=== PATIENT | male | born 1995 | race Caucasian/White ===

== ENCOUNTER 2016-05-20 10:04 | Emergency (ER) | payer OTHER ==
[~2016-05-20] VITALS: Ht 177.8 cm; Wt 97.0 kg
[2016-05-20 10:13] VITALS: Ht 177.8 cm; Wt 97.0 kg
[2016-05-20] MEDS ORDERED: SODIUM CHLORIDE 0.9% 1000ML 1,000 ML IV STA (10:38)
[2016-05-20] MEDS ORDERED: ACETAMINOPHEN 500 MG TAB PO STA (10:38)
--- NOTE | 2016-05-20 11:03 | DIAGNOSTIC IMAGING REPORT ---
CHEST ONE VIEW PORTABLE CLINICAL HISTORY: fever dyspnea COMPARISON STUDY: No previous studies for comparison. FINDINGS: Minimal right suprahilar infiltrate. Lungs otherwise appear clear. No evidence for cardiac enlargement. IMPRESSION: Minimal right suprahilar infiltrate Electronically signed by: Eddie Thrasher M.D. 05/20/2016 11:01 AM Dictated Date/Time: 05/20/2016 11:01 AM
[2016-05-20] MEDS ORDERED: CEFTRIAXONE SOD INJ 1 GM ADDVIAL IV STA (11:33)
[2016-05-20 11:41] LABS: BASO % 1.1 %; BASO ABS # 0.05 K/uL (0-0.2); COMPLETE YES; EOS % 0.2 %; HEMATOCRIT 45.1 % (42-52); IG% 0.2 %; LYMPH % 36.4 %; LYMPH ABS # 1.63 K/uL (1.2-3.4); MEAN CELL VOLUME 78.4 fL (80-100); MEAN CORPUSCULAR HEMOGLOBIN 26.1 pg (25-34); MEAN CORPUSCULAR HGB CONC 33.3 g/dl (32-36); MEAN PLATELET VOLUME 10.1 fL (7.4-10.4); MONO % 14.5 %; NEUT % 47.6 %; PLATELET COUNT 154 K/uL (130-400); RED BLOOD COUNT 5.75 M/uL (4.7-6.1); WHITE BLOOD COUNT 4.48 K/uL (4.8-10.8)
[2016-05-20 11:48] LABS: INR 1.1 (0.9-1.1); PROTHROMBIN TIME (PATIENT) 11.6 SECONDS (9.0-12.0)
[2016-05-20 12:02] LABS: ALT/SGPT 44 U/L (12-78); AST/SGOT 39 U/L (15-37); BLOOD UREA NITROGEN 17 mg/dl (7-18); BUN/CREATININE RATIO 18.8 (10-20); CALCIUM 8.6 mg/dl (8.5-10.1); CARBON DIOXIDE 25 mmol/L (21-32); CHLORIDE 106 mmol/L (98-107); CREATININE 0.92 mg/dl (0.60-1.40); GLUCOSE 93 mg/dl (70-99); POTASSIUM 3.7 mmol/L (3.5-5.1); SODIUM 141 mmol/L (136-145)
[2016-05-20 12:08] LABS: ALKALINE PHOSPHATASE 84 U/L (45-117); MAGNESIUM 2.1 mg/dl (1.8-2.4)
--- NOTE | 2016-05-20 12:40 | DIAGNOSTIC IMAGING REPORT ---
LUMBAR SPINE MRI HISTORY: Pain. Fever. lower back pain w/ fever TECHNIQUE: Multiplanar multisequence MRI of the lumbar spine was performed without the use of contrast. COMPARISON: None. FINDINGS: For the purpose of the report the L5-S1 disc space will be located on axial image 23 of 25. Normal signal characteristics of the vertebral bodies as well as intervertebral disc. Normal signal characteristics the lower aspect of the thoracic cord as well as nerve roots. L1-L2: No significant central canal or neural foraminal narrowing. L2-L3: No significant central canal or neural foraminal narrowing. L3-L4: No significant central canal or neural foraminal narrowing. L4-L5: No significant central canal or neural foraminal narrowing. L5-S1: No significant central canal or neural foraminal narrowing. IMPRESSION: Normal MRI lumbar spine Electronically signed by: Eddie Thrasher M.D. 05/20/2016 12:39 PM Dictated Date/Time: 05/20/2016 12:37 PM
[2016-05-20 12:57] VITALS: TEMP 37.4
[2016-05-20] MEDS ORDERED: CEFTRIAXONE SOD INJ 2000 MG in DEXTROSE 5% 50ML IV SCH (13:00)
[2016-05-20 13:08] LABS: MANUAL MICROSCOPIC REQUIRED? NO; REVIEW REQ? YES; URINE APPEARANCE CLEAR (CLEAR); URINE BILIRUBIN NEG (NEG); URINE COLOR COLORLESS; URINE NITRITE NEG (NEG); URINE SPECIFIC GRAVITY <= 1.005 (1.000-1.030); UROBILINOGEN NEG (NEG)
[2016-05-20 13:09] LABS: URINE EPITHELIAL CELL AUTO 0-5 /lpf (0-5)
[2016-05-20 13:10] LABS: ZZUR CULT IF INDIC CLEAN CATCH NO
[2016-05-20] MEDS ORDERED: LORAZEPAM 0.5 MG TAB PO STA (14:00)
[2016-05-20 15:31] LABS: CSF APPEARANCE CLEAR; CSF COLOR COLORLESS; CSF XANTHOCHROMIC NO XANTHOCHROMIA
--- NOTE | 2016-05-20 15:36 | DIAGNOSTIC IMAGING REPORT ---
FLUOROSCOPICALLY GUIDED LUMBAR PUNCTURE CLINICAL HISTORY: LUMBAR PUNCTURE back and hip pain. Fever. FLUOROSCOPY TIME: 15 seconds PROCEDURE: The procedure, risks and benefits were discussed with the patient including the risk of spinal headache, bleeding and infection. The patient agreed to the procedure and informed written consent was obtained. The procedure was performed by Dr. Thrasher following a timeout. The left L4-L5 interlaminar space was targeted. Skin overlying the space was prepped and draped in the usual sterile fashion and local anesthesia was achieved with 1% lidocaine. Under intermittent fluoroscopic guidance, a 20-gauge x 3 1/2 in. Sprotte needle was inserted into the thecal sac. A total of 6cc of clear, colorless cerebral spinal fluid was obtained and spread amongst 4 vials. The patient tolerated the procedure well. There were no immediate complications. The specimens were sent to the laboratory at the request of the referring physician. IMPRESSION: Successful fluoroscopic guided lumbar puncture with removal of 6 cc of clear, colorless cerebral spinal fluid. No immediate complications. Electronically signed by: Eddie Thrasher M.D. 05/20/2016 3:34 PM Dictated Date/Time: 05/20/2016 3:34 PM
[2016-05-20 15:41] LABS: CSF CHEMISTRY TUBE # 2
[2016-05-20 15:52] LABS: CSF TOTAL PROTEIN 45.4 mg/dl (15.0-45.0)
[2016-05-20] MEDS ORDERED: PENI-82 PO (16:13)
[2016-05-20] MEDS: PENICILLIN V POTASSIUM 250 MG TAB PO ONE ×2 (16:26→16:27)
[2016-05-20] MEDS ORDERED: CEPH500C PO (16:30)
[2016-05-20] MEDS ORDERED: CEPHALEXIN MONOHYDRATE 250 MG CAP PO ONE (16:30)
[2016-05-20 16:40] VITALS: BP 138/80; PULSE 92; O2SAT 97
--- NOTE | 2016-05-20 17:14 | EMERGENCY ROOM VISIT NOTE ---
History Report prepared by Narcisa: Alexander Harris Under the Supervision of: Dr. Parvez Carpenter D.O. First contact with patient: 10:26 Chief Complaint: BACK PAIN Stated Complaint: BACK PAIN IN MULTIPLE LOCATIONS History of Present Illness The patient is a 20 year old male who presents to the Emergency Room with complaints of back pain that began 4 days ago. The patient rates his current pain a 3/10 in severity. At this time, the patient was playing his instrument in a standing position when his pain began. This has happened to him in the past , however it has never been this bad and it has never occurred this quickly. Over the past few days, he has noticed his pain is best in the morning and worsens throughout the day. He currently has a fever, which he states is strange. He also notes that he had a headache yesterday and sore throat for the past 2 days, but he does not currently have them at this time. He is also experiencing neck pain. Patient denies headache, cough, change in vision, chest pain, shortness of breath, nausea, vomiting, diarrhea, pain with urination, and melena. Source of History: patient Onset: 4 days ago Position: back (lower) Symptom Intensity: 3/10 Quality: sharp Timing: worsening Associated Symptoms: + neck pain, No SOB, No abdominal pain, No chest pain, No cough, No headache, No melena, No nausea, No rash, No sorethroat, No urinary symptoms, No vomiting Review of Systems See HPI for pertinent positives & negatives. A total of 10 systems reviewed and were otherwise negative. Past Medical & Surgical Medical Problems: (1) No Known Active Medical Problems Family History Diabetes mellitus FH: gallbladder disease FH: heart disease Hypertension Social History Smoking Status: Never Smoker Smokeless Tobacco Use: No Alcohol Use: none Drug Use: none Marital Status: single Housing Status: lives with roommate Occupation Status: [employer] student Current/Historical Medications Scheduled Cephalexin Monohydrate (Keflex), 500 MG PO BID Scheduled PRN Woluspn-Lrsyqbovsgvdm-Wwokzygv (Excedrin Migraine), 2 CAP PO Q6H PRN for Migraine Allergies Coded Allergies: No Known Allergies (Unverified , 05/20/16) Physical Exam Vital Signs Date Time Temp Pulse Resp B/P Pulse Ox O2 Delivery O2 Flow Rate FiO2 05/20/16 16:40 92 18 138/80 97 05/20/16 16:25 92 18 138/80 97 Room Air 05/20/16 14:28 92 20 124/61 96 Room Air 05/20/16 12:57 37.4 91 20 128/64 97 Room Air 05/20/16 11:40 100 18 141/86 97 Room Air 05/20/16 10:13 38.4 99 16 154/74 97 Room Air Physical Exam GENERAL: Sitting up in bed, diaphoretic, alert, well appearing, well nourished, no distress, non-toxic EYE EXAM: normal conjunctiva, PERRL and EOM's intact OROPHARYNX: no exudate, no erythema, lips, buccal mucosa, and tongue normal and mucous membranes are moist. Petechiae present in the back of the throat. NECK: supple, no nuchal rigidity, no adenopathy, non-tender. Negative Brudzinski 's sign. LUNGS: Clear to auscultation. Normal chest wall mechanics HEART: no murmurs, S1 normal and S2 normal ABDOMEN: abdomen soft, non-tender, normo-active bowel sounds, no masses, no rebound or guarding. BACK: Back is symmetrical on inspection and there is no deformity, slight lower lumbar reproducible tenderness to the perispinal area and midline, no CVA tenderness. SKIN: no rashes and no bruising UPPER EXTREMITIES: upper extremities are grossly normal. LOWER EXTREMITIES: No pitting edema. NEURO EXAM: Normal sensorium, cranial nerves II-XII intact, normal speech, no weakness of arms, no weakness of legs. No drift. Finger to nose intact. Gross sensation intact. Medical Decision & Procedures ER Provider Diagnostic Interpretation: Xray results per the radiologist and my interpretation. Other results have been interpreted by the radiologist and reviewed by me. LUMBAR SPINE MRI HISTORY: Pain. Fever. lower back pain w/ fever TECHNIQUE: Multiplanar multisequence MRI of the lumbar spine was performed without the use of contrast. COMPARISON: None. FINDINGS: For the purpose of the report the L5-S1 disc space will be located on axial image of . Normal signal characteristics of the vertebral bodies as well as intervertebral disc. Normal signal characteristics the lower aspect of the thoracic cord as well as nerve roots. L1-L2: No significant central canal or neural foraminal narrowing. L2-L3: No significant central canal or neural foraminal narrowing. L3-L4: No significant central canal or neural foraminal narrowing. L4-L5: No significant central canal or neural foraminal narrowing. L5-S1: No significant central canal or neural foraminal narrowing. IMPRESSION: Normal MRI lumbar spine Electronically signed by: Eddie Thrasher M.D. 05/20/2016 12:39 PM Dictated Date/Time: 05/20/2016 12:37 PM CHEST ONE VIEW PORTABLE CLINICAL HISTORY: fever dyspnea COMPARISON STUDY: No previous studies for comparison. FINDINGS: Minimal right suprahilar infiltrate. Lungs otherwise appear clear. No evidence for cardiac enlargement. IMPRESSION: Minimal right suprahilar infiltrate Electronically signed by: Eddie Thrasher M.D. 05/20/2016 11:01 AM Dictated Date/Time: 05/20/2016 11:01 AM FLUOROSCOPICALLY GUIDED LUMBAR PUNCTURE CLINICAL HISTORY: LUMBAR PUNCTURE back and hip pain. Fever. FLUOROSCOPY TIME: 15 seconds PROCEDURE: The procedure, risks and benefits were discussed with the patient including the risk of spinal headache, bleeding and infection. The patient agreed to the procedure and informed written consent was obtained. The procedure was performed by Dr. Thrasher following a timeout. The left L4-L5 interlaminar space was targeted. Skin overlying the space was prepped and draped in the usual sterile fashion and local anesthesia was achieved with 1% lidocaine. Under intermittent fluoroscopic guidance, a 20-gauge x 3 1/2 in. Sprotte needle was inserted into the thecal sac. A total of 6cc of clear, colorless cerebral spinal fluid was obtained and spread amongst 4 vials. The patient tolerated the procedure well. There were no immediate complications. The specimens were sent to the laboratory at the request of the referring physician. IMPRESSION: Successful fluoroscopic guided lumbar puncture with removal of 6 cc of clear, colorless cerebral spinal fluid. No immediate complications. Electronically signed by: Eddie Thrasher M.D. 05/20/2016 3:34 PM Dictated Date/Time: 05/20/2016 3:34 PM Laboratory Results 05/20/16 11:11 Red Blood Count 5.75, Mean Corpuscular Volume 78.4, Mean Corpuscular Hemoglobin 26.1, Mean Corpuscular Hemoglobin Concent 33.3, Mean Platelet Volume 10.1, Neutrophils (%) (Auto) 47.6, Lymphocytes (%) (Auto) 36.4, Monocytes (%) (Auto) 14.5, Eosinophils (%) (Auto) 0.2, Basophils (%) (Auto) 1.1, Neutrophils # (Auto ) 2.13, Lymphocytes # (Auto) 1.63, Monocytes # (Auto) 0.65, Eosinophils # (Auto ) 0.01, Basophils # (Auto) 0.05 05/20/16 11:11 Test 05/20/16 11:11 05/20/16 12:57 05/20/16 15:10 White Blood Count 4.48 K/uL (4.8-10.8) Red Blood Count 5.75 M/uL (4.7-6.1) Hemoglobin 15.0 g/dL (14.0-18.0) Hematocrit 45.1 % (42-52) Mean Corpuscular Volume 78.4 fL (80-100) Mean Corpuscular Hemoglobin 26.1 pg (25-34) Mean Corpuscular Hemoglobin Concent 33.3 g/dl (32-36) Platelet Count 154 K/uL (130-400) Mean Platelet Volume 10.1 fL (7.4-10.4) Neutrophils (%) (Auto) 47.6 % Lymphocytes (%) (Auto) 36.4 % Monocytes (%) (Auto) 14.5 % Eosinophils (%) (Auto) 0.2 % Basophils (%) (Auto) 1.1 % Neutrophils # (Auto) 2.13 K/uL (1.4-6.5) Lymphocytes # (Auto) 1.63 K/uL (1.2-3.4) Monocytes # (Auto) 0.65 K/uL (0.11-0.59) Eosinophils # (Auto) 0.01 K/uL (0-0.5) Basophils # (Auto) 0.05 K/uL (0-0.2) RDW Standard Deviation 39.7 fL (36.4-46.3) RDW Coefficient of Variation 14.1 % (11.5-14.5) Immature Granulocyte % (Auto) 0.2 % Immature Granulocyte # (Auto) 0.01 K/uL (0.00-0.02) Prothrombin Time 11.6 SECONDS (9.0-12.0) Prothromb Time International Ratio 1.1 (0.9-1.1) Anion Gap 10.0 mmol/L (3-11) Est Creatinine Clear Calc Drug Dose 150.9 ml/min Estimated GFR () 139.3 Estimated GFR (Non- 120.2 BUN/Creatinine Ratio 18.8 (10-20) Calcium Level 8.6 mg/dl (8.5-10.1) Magnesium Level 2.1 mg/dl (1.8-2.4) Total Bilirubin 0.3 mg/dl (0.2-1) Direct Bilirubin < 0.1 mg/dl (0-0.2) Aspartate Amino Transf (AST/SGOT) 39 U/L (15-37) Alanine Aminotransferase (ALT/SGPT) 44 U/L (12-78) Alkaline Phosphatase 84 U/L (45-117) Total Creatine Kinase 150 U/L (39-308) Creatine Kinase MB < 0.5 ng/ml (0.5-3.6) Creatine Kinase MB Ratio (0-3.0) Troponin I < 0.015 ng/ml (0-0.045) Total Protein 7.3 gm/dl (6.4-8.2) Albumin 3.9 gm/dl (3.4-5.0) Urine Color COLORLESS Urine Appearance CLEAR (CLEAR) Urine pH 6.0 (4.5-7.5) Urine Specific Rowena <= 1.005 (1.000-1.030) Urine Protein NEG (NEG) Urine Glucose (UA) NEG (NEG) Urine Ketones NEG (NEG) Urine Occult Blood NEG (NEG) Urine Nitrite NEG (NEG) Urine Bilirubin NEG (NEG) Urine Urobilinogen NEG (NEG) Urine Leukocyte Esterase NEG (NEG) Urine WBC (Auto) 0 /hpf (0-5) Urine RBC (Auto) 0-4 /hpf (0-4) Urine Hyaline Casts (Auto) 1-5 /lpf (0-5) Urine Epithelial Cells (Auto) 0-5 /lpf (0-5) Urine Bacteria (Auto) NEG (NEG) CSF Color COLORLESS CSF Appearance CLEAR CSF WBC 1 /uL (0-5) CSF RBC 0 /uL (0) CSF Xanthrochromic NO XANTHOCHROMIA CSF Cell Count Tube # 4 CSF Chemistry Tube # 2 CSF Glucose 61 mg/dl (40-70) CSF Total Protein 45.4 mg/dl (15.0-45.0) Laboratory results per my review. Medications Administered Medications (Trade) Dose Ordered Sig/Concepcion Route Start Time Stop Time Status Last Admin Dose Admin Acetaminophen 1000 mg 1,000 mg NOW STAT PO 05/20/16 10:38 05/20/16 10:40 DC 05/20/16 11:34 1,000 MG Sodium Chloride 1,000 ml @ 999 mls/hr Q1H1M STAT IV 05/20/16 10:38 05/20/16 11:38 DC 05/20/16 11:34 999 MLS/HR Ceftriaxone Sodium/Dextrose (Rocephin Inj/D5 50ml) 70 ml @ 140 mls/hr TODAY@1300 IV 05/20/16 13:00 05/20/16 13:29 DC 05/20/16 12:59 140 MLS/HR Cephalexin Monohydrate (Keflex Cap) 500 mg NOW ONCE PO 05/20/16 16:30 05/20/16 16:31 DC 05/20/16 16:33 500 MG Procedure Lumbar Puncture Indication: Fever and neck stiffness. Verbal consent was obtained after the risks and benefits were explained, including but not limited to headache, bleeding/clotting, scarring, infection, pain, and bone/joint/nerve damage. At this time, the risks of the procedure are less than the risks of NOT performing the procedure. A time out was taken and the correct patient and site identified. The patient was placed in the sitting position and the back was prepped with betadine and draped in the standard fashion. The L3 intervertebral space was identified, anesthetized locally with 1 % lidocaine without epinephrine, and the spinal needle was inserted through the skin with the bevel parallel to the dural fibers. The needle was unsuccessful in obtaining spinal fluid. ECG Indication: back/shoulder pain Rate (beats per minute): 96 Rhythm: sinus rhythm Findings: no ectopy, other (normal axis) ED Course ED COURSE: Vital signs were reviewed and showed that the patient is febrile The patients medical record was reviewed The above diagnostic studies were performed and reviewed. ED treatments and interventions as stated above. 1026: The patient was evaluated in room C9. A complete history and physical examination was performed. 1038: Sodium Chloride 1000 ml @ 999 mls/hr IV, Tylenol Tab 1000 mg PO 1133: Rocephin Inj 2 gm IV 1300: Ceftriaxone Sodium 2000 mg/Dextrose 70 ml @ 140 mls/hr Protocol IV 1400: Lorazepam 0.5 mg PO 1413: I attempted to do a lumbar puncture at this time. I was unsuccessful. See procedure note. 1515: Dr. Thrasher - [facility] [place] the lumbar puncture. He states that it was extremely difficult. Results are pending. 1615: Veetids Tab 500 mg PO 1625: The patient's father is severely allergic to Penicillin, so we will try Keflex. 1630: Keflex Cap 500 mg PO 1640: Upon reevaluation, the patient is resting. I discussed my findings with the patient and he understands and agrees with the treatment plan. The patient remained stable while under my care. The patient appeared well at the time of discharge. Medical Decision Differential diagnosis: Etiologies such as viral syndrome, otitis, pharyngitis, pneumonia, influenza, meningitis, urinary tract infection, sepsis, bacteremia, as well as others were entertained. Patient is a 20-year-old male who presents the ER for lower back pain. He notes that this started Saturday and has been present since then. He describes as dull and achy. He also complains of a sore throat which was present for the past 2 days but is resolved today. Lastly he complains of stiffness in his upper neck but no pain. Vitals are remarkable for a fever. He is otherwise fairly well-appearing. Labs show no significant leukocytosis or anemia. BMP along with LFTs, bilirubin and troponin were negative. UA was negative. INR was unremarkable. On exam he did have petechiae in the back of his throat which led me to believe that he may have a strep infection however with his lower back pain and fevers I felt was prudent to rule out an abscess. MRI of his lumbar spine was unremarkable. He was given a dose of Rocephin to cover for possible meningitis. I attempted LP but was unsuccessful. This was performed by radiology and was difficult per radiology secondary to severe lumbar lordosis. He denies any IV drug use or trauma. CSF shows 1 white cell without red cells. No xanthochromia. Glucose was normal. There is no meningitis. Based on the petechiae in his throat I question if this is all secondary to strep. I gave him Keflex following initially given penicillin but he did not want to take this as follow has an allergy to penicillins. Patient was discharged following a negative MRI, LP and unremarkable blood work with possible strep pharyngitis. Discussed with Pt concerning signs and symptoms to watch out for. Pt was instructed to follow up with their PCP and discussed with the patient their option to return to the ED at anytime for persistent or worsening symptoms. The appropriate anticipatory guidance and out-patient management, including indications for return to the emergency department, were explained at length to the patient and understood. Consults Time Called: 1500 Consulting Physician: Dr. Thrasher - [facility] [place] Returned Call: [phone] He did the lumbar puncture on this patient. Impression Primary Impression: Acute pharyngitis Additional Impressions: Fever Back pain Scribe Attestation The scribe's documentation has been prepared under my direction and personally reviewed by me in its entirety. I confirm that the note above accurately reflects all work, treatment, procedures, and medical decision making performed by me. Departure Information Dispostion Home / Self-Care Prescriptions Cephalexin Monohydrate (Keflex) 500 Mg Cap 500 MG PO BID, #20 CAP Prov: Parvez Carpenter, DO 05/20/16 Referrals No Doctor, Assigned (PCP) Forms HOME CARE DOCUMENTATION FORM, IMPORTANT VISIT INFORMATION Patient Instructions ED Strep Pharyngitis Poss, My [facility] Additional Instructions Please follow up with your primary care doctor or if you are a student [facility] with in the next 24 hours. Any worsening of your symptoms, please return to the ED immediately. This includes persistent fevers greater than 100.4 over the next 2 days, confusion, worsening headache, severe stiff neck, weakness or numbness in your arms or legs or any other concerning signs or symptoms from your standpoint. Please take antibiotics as prescribed. Problem Qualifiers Primary Impression: Acute pharyngitis Pharyngitis/tonsillitis etiology: unspecified etiology Qualified Codes: J02.9 - Acute pharyngitis, unspecified Additional Impressions: Fever Fever type: unspecified Qualified Codes: R50.9 - Fever, unspecified Back pain Back pain location: low back pain Chronicity: acute Back pain laterality: midline Sciatica presence: without sciatica Qualified Codes: M54.5 - Low back pain
[2016-05-21 09:30] LABS: ISTAT CREATININE 0.8 mg/dl; ISTAT HEMOGLOBIN 15.3 g/dl (14.0-18.0); ISTAT IONIZED CALCIUM 1.17 mmol/l
--- NOTE | 2016-05-21 16:05 | Pharmacy Progress Note ---
ED Pharmacist Culture FollowUp Date of Service: May 21, 2016. 1 of 2 blood cultures are growing GPC. Patient was seen in ER 05/20 for c/o low back pain, fever, and neck stiffness - had a MCCANN day prior to presentation along w/ recent h/o sore throat. No MCCANN or sore throat the day of presentation. CSF was obtained and did not indicate bacterial infxn. He did have a slightly depressed WBC, but no L shift on CBC. HR in 90's and RR 16-20 while in ER. MRI of lumbar spine was negative Rapid GAS screen was negative, backup cx is growing beta-hemolytic strep He was discharged w/ Rx for Keflex 500mg BID x 10 days. Given only 1 of 2 cx's is currently positive, this could be contamination. Reviewed case with Dr Moreno who agreed to wait for cultures to finalize. No action required at this time.
--- NOTE | 2016-05-22 15:37 | Pharmacy Progress Note ---
ED Pharmacist Culture FollowUp Date of Service: May 22, 2016. May 22, 2016. 1 of 2 blood cultures are growing CoN Not Lugdunensis Back-up GAS culture is gwoing Grp F strep (likely strep anginosus group). This bacteria could represent normal ingrid of oral cavity. He was prescribed Keflex on discharge which likely would cover this organism. No action required. May 21, 2016. 1 of 2 blood cultures are growing GPC. Patient was seen in ER 05/20 for c/o low back pain, fever, and neck stiffness - had a MCCANN day prior to presentation along w/ recent h/o sore throat. No MCCANN or sore throat the day of presentation. CSF was obtained and did not indicate bacterial infxn. He did have a slightly depressed WBC, but no L shift on CBC. HR in 90's and RR 16-20 while in ER. MRI of lumbar spine was negative Rapid GAS screen was negative, backup cx is growing beta-hemolytic strep He was discharged w/ Rx for Keflex 500mg BID x 10 days. Given only 1 of 2 cx's is currently positive, this could be contamination. Reviewed case with Dr Moreno who agreed to wait for cultures to finalize. No action required at this time.
[2016-05-31] MEDS ORDERED: ASPI-390 PO (10:22)
== END 2016-05-20 16:41 | disposition home or self-care (01) ==
LOC: C.EDB 10:09 → C.EDC 16:41
DX: J02.9 Acute pharyngitis, unspecified (principal); R50.9 Fever, unspecified; M54.5 Low back pain; Z83.3 Family history of diabetes mellitus; Z82.49 Family history of ischemic heart disease and other diseases of the circulatory system; Z83.79 Family history of other diseases of the digestive system

== ENCOUNTER 2016-05-31 19:29 | Emergency (ER) | payer OTHER ==
[~2016-05-31] VITALS: Ht 177.8 cm; Wt 96.2 kg
[~2016-05-31 19:29] MED LIST: ASPI-390 PO; CEPH500C PO
[2016-05-31 19:44] VITALS: TEMP 36.9; Ht 177.8 cm; Wt 96.2 kg
[2016-05-31] MEDS ORDERED: [UNRECOGNIZED DRUG - OTHER] PO (20:36)
[2016-05-31 21:00] LABS: MEAN CORPUSCULAR HGB CONC 33.9 g/dl (32-36); MEAN PLATELET VOLUME 9.4 fL (7.4-10.4); PLATELET COUNT 200 K/uL (130-400)
[2016-05-31 21:16] LABS: BUN/CREATININE RATIO 17.3 (10-20); CALCIUM 8.6 mg/dl (8.5-10.1); CREATININE 0.92 mg/dl (0.60-1.40)
[2016-05-31] MEDS ORDERED: METH4PAK PO (22:07)
[2016-05-31 22:15] VITALS: BP 148/75; PULSE 91; O2SAT 97
[2016-05-31 23:44] LABS: HEMATOCRIT 42.2 % (42-52); MEAN CELL VOLUME 76.4 fL (80-100); MEAN CORPUSCULAR HEMOGLOBIN 25.9 pg (25-34); RED BLOOD COUNT 5.52 M/uL (4.7-6.1); WHITE BLOOD COUNT 23.95 K/uL (4.8-10.8)
[2016-05-31 23:57] LABS: COMPLETE YES; LYMPH ABS # 7.04 K/uL (1.2-3.4); LYMPHOCYTE % 29.4 %; NEUTROPHILS % 5.5 %; VARIANT LYM ABS # 14.92 K/uL; VARIANT LYMPHOCYTE % 62.3 %
--- NOTE | 2016-06-04 21:51 | EMERGENCY ROOM VISIT NOTE ---
ED Visit Note First contact with patient: 20:04 Chief Complaint: Throat pain. History of Present Illness: Mr. Beasley is a 20-year-old white male who ambulates into the ED complaining of throat pain. Historically patient reports he was seen in this emergency department on May 20 and was diagnosed with acute pharyngitis. He was discharged to home on a 10 day course of Keflex. Patient reports he finished his course as prescribed and is still having throat pain. Currently he is complaining of a constant achy pain in his throat that becomes sharp with swallowing. He rates his overall discomfort 5/10. His pain is nonradiating. As previously mentioned swallowing increases his discomfort. He has not identified any alleviating factors related to the pain. He reports he has not taken any additional medications for his pain since his antibiotics. Associated with his pain he reports painful swallowing. He denies fevers, chills, sweats, skin eruptions, skin color changes, headache, dizziness, lightheadedness, ear pain, ear drainage, hearing changes, voice changes, painful talking, drooling, inability to swallow, neck pain and stiffness, cough, wheezing, shortness of breath, abdominal pain, nausea/vomiting , skin eruptions, skin color changes. Review of Systems: As noted above in history of present illness. All body systems were reviewed and found to be negative as noted above. Past Medical History: Bronchitis, status post tonsillectomy, wisdom teeth extraction, pilonidal IND and Lasix eye surgery. Current Medications: Excedrin Migraine. Allergies to Medications: Penicillin. Social History: Patient is University student; he feels safe in his home environment; he denies tobacco and alcohol use. Physical Examination: Vital Signs: Date Time Temp Pulse Resp B/P Pulse Ox O2 Delivery O2 Flow Rate FiO2 05/31/16 22:15 91 18 148/75 97 05/31/16 19:44 36.9 99 16 168/81 99 Room Air GENERAL: 20-year-old male in mild distress due to pain, nontoxic-appearing, afebrile and hemodynamically stable. NEUROLOGICAL: Awake, alert and oriented to person, place and time. Answering questions appropriately and following commands. Normal gait. Good hand eye coordination. No focal motor sensory deficits. SKIN: Warm, dry and pink. No soft tissue eruptions or trauma noted. HEENT: Atraumatic and normocephalic. No erythema or tenderness over the frontal or maxillary sinuses. External ears are nontender. Auditory canals are pink and patent. Tympanic membranes are pearly christianson with normal light reflex. PERRLA. Sclera white and conjunctiva pink. No drainage from naris. Oral cavity moist and pink. Airway is patent. Uvula is midline and no abscesses are seen. Pharynx is mildly erythematous but not edematous. No exudative material in the posterior pharyngeal area. Speech normal. No lymphadenopathy. No laryngeal tenderness. Trachea midline. No jugular venous distention. BACK: No tenderness over the bony spine. Full range of motion of the cervical spine. No CVA tenderness. THORAX: Lungs sounds are clear to auscultation and equal bilaterally with symmetrical chest wall. No wheezing, rales or rhonchi. ED Course: Patient is assessed as noted above. Laboratory Testing: Test 05/31/16 20:45 Range/Units White Blood Count 23.95 4.8-10.8 K/uL Red Blood Count 5.52 4.7-6.1 M/uL Hemoglobin 14.3 14.0-18.0 g/dL Hematocrit 42.2 42-52 % Mean Corpuscular Volume 76.4 80-100 fL Mean Corpuscular Hemoglobin 25.9 25-34 pg Mean Corpuscular Hemoglobin Concent 33.9 32-36 g/dl Platelet Count 200 130-400 K/uL Mean Platelet Volume 9.4 7.4-10.4 fL RDW Standard Deviation 41.5 36.4-46.3 fL RDW Coefficient of Variation 14.8 11.5-14.5 % Neutrophils % (Manual) 5.5 % Lymphocytes % (Manual) 29.4 % Variant Lymphocytes % (manual) 62.3 % Monocytes % (Manual) 2.8 % Neutrophils # (Manual) 1.32 1.4-6.5 K/uL Total Absolute Neutrophils 1.32 1.4-6.5 K/uL Lymphocytes # (Manual) 7.04 1.2-3.4 K/uL Absolute Variant Lymphocytes 14.92 K/uL Total Absolute Lymphocytes 21.96 1.2-3.4 K/uL Monocytes # (Manual) 0.67 0.11-0.59 K/uL Red Blood Cell Morphology Unremarkable Sodium Level 140 136-145 mmol/L Potassium Level 4.0 3.5-5.1 mmol/L Chloride Level 105 98-107 mmol/L Carbon Dioxide Level 30 21-32 mmol/L Anion Gap 5.0 3-11 mmol/L Blood Urea Nitrogen 16 7-18 mg/dl Creatinine 0.92 0.60-1.40 mg/dl Est Creatinine Clear Calc Drug Dose 150.3 ml/min Estimated GFR () 139.3 Estimated GFR (Non- 120.2 BUN/Creatinine Ratio 17.3 10-20 Random Glucose 90 70-99 mg/dl Calcium Level 8.6 8.5-10.1 mg/dl Monoscreen POS NEG Rapid Strep Screen: Negative. Cultures pending. Patient was educated about tonight's findings and instructed on his treatment plan; he verbalizes understanding and agreement with this plan. Clinical Impression: Mononucleosis. Decision-Making: Initially my differential diagnosis I considered strep throat, posterior pharyngeal abscess, mononucleosis, and other causes. Disposition: Patient discharged home in stable condition; prior to departure he was reassessed and subjectively reported that he was pain-free. Plan: Patient was encouraged to alternate ibuprofen and acetaminophen. Patient was prescribed a Medrol Dosepak and instructed on its use. Patient was encouraged to follow-up with PCP for recheck in 4-5 days. Patient was encouraged to stay well-hydrated and consider using a liquid or mechanical soft diet until resolution of discomfort. Patient was encouraged return the ED for worsening pain, inability to swallow, painful talking, drooling, fevers or any new/concerning symptoms.
== END 2016-05-31 22:19 | disposition home or self-care (01) ==
LOC: C.EDB 19:30 → C.EDD 22:19
DX: B27.90 Infectious mononucleosis, unspecified without complication (principal); R07.0 Pain in throat